=== PATIENT | male | born 1975 | race African-American/Black ===

== ENCOUNTER 2018-08-13 06:56 | Day surgery (SDC) | payer OTHER ==
[2018-08-13] MEDS ORDERED: VANCOMYCIN 1 GM 250 ML IVPB (07:00)
[2018-08-13] MEDS ORDERED: FENTAnyl 50 MCG/ML VIAL (10:11)
[2018-08-13] MEDS ORDERED: PROPOFOL 20 ML (10:11)
[2018-08-13] MEDS ORDERED: ONDANSETRON 4 MG INJ IV (10:30)
[2018-08-13] MEDS ORDERED: DIPHENHYDRAMINE 50 MG INJ IV (10:30)
[2018-08-13] MEDS ORDERED: MEPERIDINE 25 MG INJ IV (10:30)
[2018-08-13] MEDS ORDERED: HYDROmorphONE 1 MG/5 ML IV SYRINGE IV ×3 (10:30)
[2018-08-13] MEDS ORDERED: OXYCODONE/ACETAMINOPHEN (5/325) TAB PO ×2 (10:30)
[2018-08-13] MEDS: BUPIVACAINE 0.5% (SDV) 30 ML INJ (10:38)
[2018-08-13] MEDS: LIDOCAINE 2% (MDV) 20 ML INJ (10:39)
[2018-08-13] MEDS: DEXAMETHASONE 4 MG/ML 1 ML INJ (10:40)
[2018-08-13] MEDS: TRIAMCINOLONE ACET 40 MG/ML INJ (10:40)
[2018-08-13] MEDS ORDERED: CEFAZOLIN 1 GM INJ (10:45)
== END 2018-08-13 13:12 | disposition home or self-care (01) ==
LOC: SDS 06:56
DX: D23.72 Other benign neoplasm of skin of left lower limb, including hip (principal)
CPT/HCPCS: 28043; 88307